=== PATIENT | female | born 2000 | race Caucasian/White ===

== ENCOUNTER → 2021-09-19 | Outpatient (CLI) | payer OTHER ==
--- NOTE | 2021-09-19 19:36 | REP ---
INDICATION: ANATOMY. COMPARISON: None available at the time of this dictation. TECHNIQUE: Transabdominal OB ultrasound. FINDINGS: Scanning demonstrates a viable single intrauterine gestation in a breech lie. motion is observed and heart rate is recorded at 150 beats per minute. An posterior, grade zero placenta is seen without evidence of previa. Amniotic fluid is subjectively normal. Closed cervical length is measured at 3.2 cm transabdominally. No extrauterine abnormality is observed. There has been appropriate interval growth. No anomaly is seen. The following anatomic structures are identified and felt to be sonographically unremarkable: cranium, choroid plexus, cavum, cerebellum and posterior fossa, face and profile, lungs, four-chamber heart with left and right ventricular outflow tract views, diaphragm, left-sided stomach, abdominal wall cord insertion, three-vessel umbilical cord, kidneys and bladder, spine, and upper and lower extremities. Biometry chart: BPD 4.7 cm; 20 weeks 2 days Head circumference 18 point cm; 20 weeks 4 days Abdominal circumference 16.4 cm; 21 weeks 3 days Femur length 3.4 cm; 20 weeks 6 days Humeral length 3.2 cm; 20 weeks 5 days HC/AC ratio normal 1.11 Cephalic index normal 0.71 Estimated weight 395 grams, 0 pounds 13 ounces, 80 percentile for 20 weeks 3 days. IMPRESSION: Viable single intrauterine gestation at 20 weeks 5 days by today's composite sonographic criteria. Expected gestational age estimate based on LMP or dates provided is 20 weeks is 3 days. CHELY by dates provided 02/03/2022 . No anomaly. <Electronically signed by Sushil Gonzalez > 09/19/211931
== END ==
LOC: M RAD 14:29
PROVIDERS: ATTEND Obstetrics & Gynecology
DX: Z36.89 Encounter for other specified antenatal screening (principal); Z3A.20 20 weeks gestation of pregnancy

== ENCOUNTER 2022-01-23 17:41 | Inpatient (IN) | payer OTHER ==
[~2022-01-23] VITALS: Ht 203.2 cm; Wt 83.7 kg
[2022-01-23] VITALS (12 sets, daily range): BP systolic 135–175; BP diastolic 60–84
[2022-01-23] MEDS ORDERED: OXYTOCIN INJ 10 UNITS/ML VIAL (J2590) As Ordered ONE (17:49)
[2022-01-23] MEDS ORDERED: OXYTOCIN DRIP 30 UNITS in IV 1 EA IV PRN (18:15)
[2022-01-23] MEDS ORDERED: ANUSOL HC CREAM 30GM TOP PRN (18:15)
[2022-01-23] MEDS ORDERED: IBUPROFEN 600MG TAB PO PRN (18:15)
[2022-01-23] MEDS ORDERED: DIBUCAINE 1% OINTMENT 30GM TOP PRN (18:15)
[2022-01-23] MEDS ORDERED: OXYTOCIN INJ 10 UNITS/ML VIAL (J2590) IM PRN (18:15)
[2022-01-23] MEDS ORDERED: DOCUSATE SODIUM 100MG CAPSULE PO PRN (18:15)
[2022-01-23] MEDS ORDERED: RHOGAM 300 MCG (1500 IU) INJ (J2790) IM SCH (18:15)
[2022-01-23] MEDS ORDERED: METHYLERGONOVINE MALEATE 0.2 MG TAB PO PRN (18:15)
[2022-01-23] MEDS ORDERED: MOM 30ML SUSPENSION UDC PO PRN (18:15)
[2022-01-23] MEDS ORDERED: ACETAMINOPHEN TAB 650MG DOSE (2X325MG) PO PRN (18:15)
[2022-01-23] MEDS ORDERED: MEASLES,MUMPS,RUBELLA VACCINE INJ (MMR-II) (90707) SC SCH (18:15)
[2022-01-23] MEDS: LR 1,000 ML IV SCH (18:15)
[2022-01-23] MEDS ORDERED: OXYTOCIN DRIP 30 UNITS in IV 1 EA IV ONE (18:15)
[2022-01-23 18:21] LABS: CORD GAS ABE A -2.4; CORD GAS ABE V -0.3; CORD GAS HCO3 A 21.6 MEQ/L; CORD GAS HCO3 V 28.8 MEQ/L; CORD GAS O2 SAT A 86.2 %; CORD GAS O2 SAT V 28.8 %; CORD GAS PCO2 A 35.5 mmHg; CORD GAS PCO2 V 66.8 mmHg; CORD GAS PH A 7.402 UNITS; CORD GAS PH V 7.253 UNITS; CORD GAS PO2 A 38.7 mmHg; CORD GAS PO2 V 15.5 mmHg; CORD GAS SBC A 22.2 MEQ/L; CORD GAS SBC V 22.4 MEQ/L; CORD GAS TCO2 A 22.7 MEQ/L; CORD GAS TCO2 V 30.9 MEQ/L
[2022-01-23] MEDS ORDERED: OXYTOCIN 30 UNITS IN 0.9% NaCl 500ML IV BAG (J2590) As Ordered ONE (18:28)
[2022-01-23 19:38] LABS: HEMATOCRIT 40.9 % (36.0-47.0); HEMOGLOBIN 13.4 g/dl (12.0-15.5); MEAN CORPUSCULAR HEMOGLOBIN 28.2 pg (27.0-33.0); MEAN CORPUSCULAR HGB CONC 32.8 g/dl (32.0-36.5); MEAN CORPUSCULAR VOLUME 85.9 fl (80.0-96.0); PLATELET COUNT, AUTOMATED 301 10^3/uL (150-450); RED BLOOD COUNT 4.76 10^6/uL (4.00-5.40); WHITE BLOOD COUNT 21.5 10^3/uL (4.0-10.0)
[2022-01-23 20:20] LABS: TOTAL PROTEIN,RANDOM URINE 18.5 MG/DL (0.0-12.0)
[2022-01-23 20:40] LABS: ALT/SGPT 23 U/L (12-78); BILIRUBIN,TOTAL 0.3 MG/DL (0.2-1.0); CREATININE FOR GFR 0.59 MG/DL (0.55-1.30); GLOMERULAR FILTRATION RATE > 60.0 (>60); LDH LACTATE DEHYDROGENASE 169 U/L (84-246); URIC ACID 3.4 MG/DL (2.6-6.0)
[2022-01-23] MEDS: ACETAMINOPHEN 500 MG TAB PO PRN (20:43)
[2022-01-23] MEDS ORDERED: LABETALOL 100MG/20ML VIAL IV STA (20:51)
[2022-01-24 02:00] VITALS: BP 117/56
[2022-01-24] MEDS: LR 1,000 ML IV SCH (02:15)
[2022-01-24] MEDS: ACETAMINOPHEN 500 MG TAB PO PRN ×3 (05:46→20:26)
[2022-01-24 06:00] VITALS: BP 132/74
[2022-01-24 07:23] LABS: HEMATOCRIT 35.2 % (36.0-47.0); HEMOGLOBIN 11.7 g/dl (12.0-15.5); MEAN CORPUSCULAR HEMOGLOBIN 28.3 pg (27.0-33.0); MEAN CORPUSCULAR HGB CONC 33.2 g/dl (32.0-36.5); MEAN CORPUSCULAR VOLUME 85.2 fl (80.0-96.0); PLATELET COUNT, AUTOMATED 231 10^3/uL (150-450); RED BLOOD COUNT 4.13 10^6/uL (4.00-5.40); WHITE BLOOD COUNT 18.6 10^3/uL (4.0-10.0)
[2022-01-24] MEDS: PRENATAL VITAMINS CHEWABLE TABLET PO SCH (08:45)
[2022-01-24] MEDS: LABETALOL 100MG TAB PO SCH ×2 (08:45→20:25)
[2022-01-24 10:00] VITALS: BP 126/60
[2022-01-24 14:00] VITALS: BP 135/63
[2022-01-24 18:00] VITALS: BP 144/76
[2022-01-24 22:00] VITALS: BP 147/67
[2022-01-25 02:00] VITALS: BP 139/63
[2022-01-25 05:56] VITALS: BP 135/65
[2022-01-25] MEDS: PRENATAL VITAMINS CHEWABLE TABLET PO SCH (08:15)
[2022-01-25] MEDS: ACETAMINOPHEN 500 MG TAB PO PRN (08:16)
[2022-01-25 08:17] VITALS: BP 131/71
[2022-01-25] MEDS: LABETALOL 100MG TAB PO SCH (08:17)
[2022-01-25 10:00] VITALS: BP 134/62
== END 2022-01-25 13:00 | disposition home or self-care (01) | DRG 807 ==
LOC: M LDO 17:41 → M LDI 17:44 → M OBS 21:57
PROVIDERS: ADMIT Obstetrics & Gynecology; ATTEND Obstetrics & Gynecology
PROC: 10E0XZZ Delivery of Products of Conception, External Approach (ICD-10-PCS; principal; 2022-01-23)
DX: O80 Encounter for full-term uncomplicated delivery (principal); Z37.0 Single live birth; Z3A.38 38 weeks gestation of pregnancy